=== PATIENT | female | born 1970 | race Caucasian/White ===

== ENCOUNTER → 2020-05-11 10:15 | Outpatient (CLI) | payer BC, SELFPAY ==
--- NOTE | ~2020-05-11 | MM_ITS ---
EXAMINATION: MM screening darius BI w xi HISTORY: Screening TECHNIQUE: Craniocaudal and mediolateral oblique 3-D tomosynthesis images were obtained and synthetic 2-D images were generated. CAD analysis was submitted and interpreted. COMPARISON: Comparison to multiple prior studies sequentially, with oldest reviewed study dated 05/17. BREAST PARENCHYMAL COMPOSITION: There are scattered areas of fibroglandular density. FINDINGS: There is developing asymmetry upper aspect of the right breast posteriorly on MLO view. The left breast is stable without evidence for malignancy. IMPRESSION: 1. Developing right breast asymmetry. 2. Additional mammographic views and possible breast ultrasound are recommended. BI-RADS Category 0: Incomplete: Needs additional imaging evaluation. Reviewed, dictated and finalized at location A. IMPRESSION: 1. Developing right breast asymmetry. 2. Additional mammographic views and possible breast ultrasound are recommended . BI-RADS Category 0: Incomplete: Needs additional imaging evaluation.
== END ==
PROVIDERS: Visit Provider Obstetrics & Gynecology
DX: Z12.31 Encounter for screening mammogram for malignant neoplasm of breast (principal); R92.8 Other abnormal and inconclusive findings on diagnostic imaging of breast
CPT/HCPCS: 77063; 77067

== ENCOUNTER → 2020-06-03 08:55 | Outpatient (CLI) | payer BC, SELFPAY ==
--- NOTE | ~2020-06-03 | MMUS_ITS ---
EXAMINATION: MM diagnostic mammo unilat RT, US breast RT limited HISTORY: Developing right breast mammographic asymmetry reported in posterior right breast on MLO scr eening view of 05/11/2020 TECHNIQUE: Additional 3-D tomosynthesis images of the right breast were performed and synthetic 2-D i mages were generated. CAD analysis was submitted and interpreted. High resolution upper outer and low er outer right breast ultrasound was performed. COMPARISON: 05/11/2020 bilateral digital screening mammogram FINDINGS: MAMMOGRAPHIC FINDINGS: No suspicious mass or architectural distortion or any malignant calcification, skin thickening or ret raction is detected. ULTRASOUND: 9:00 4 cm from nipple: There is a 3.9 x 2.9 x 4.6 mm hypoechoic lesion with some posterior shadowing. Ultrasound-guided biopsy is recommended. No other significant sonographic finding is noted. IMPRESSION: 1. Shadowing 4.6 mm right breast lesion at 9:00 4 cm from nipple 2. Ultrasound-guided biopsy of right 9:00 lesion is recommended BI-RADS category 4, suspicious findings. Dr. Nash telephoned the mammogram and ultrasound report and ultrasound guided biopsy recommendation o n 06/03/[address] Herzog's [facility]any[facility]. Reviewed, dictated and finalized at location A. IMPRESSION: 1. Shadowing 4.6 mm right breast lesion at 9:00 4 cm from nipple 2. Ultrasound-guided biopsy of right 9:00 lesion is recommended BI-RADS category 4, suspicious findings. Dr. Nash telephoned the mammogram and ultrasound report and ultrasound guided b iopsy recommendation on 06/03/[address] Herzog's [facility] ad[facility].
== END ==
PROVIDERS: Visit Provider Obstetrics & Gynecology
DX: N63.15 Unspecified lump in the right breast, overlapping quadrants (principal)
CPT/HCPCS: 76642; 77065

== ENCOUNTER 2020-06-22 09:53 | Outpatient (CLI) | payer BC, SELFPAY ==
--- NOTE | ~2020-06-22 | US_ITS ---
EXAMINATION: US GUIDED NEEDLE BIOPSY DATE: 06/22/2020 11:45 CDT INDICATION: Shadowing 4.6 mm right breast lesion at 9:00 4 cm from nipple TECHNIQUE AND FINDINGS: The risks and potential benefits of the procedure were discussed with the patient, and written inform ed consent was obtained. Timeout procedure was performed. After sterile preparation of the right steve st, 1% lidocaine was utilized for local anesthesia. A 14G spring-loaded biopsy gun needle was advanced to the edge of the region of interest at 9:00 4 cm from the nipple from a lateral approach utilizing sonographic guidance. A total of three tissue cor e samples were obtained through the lesion. An Inrad tissue marker clip was then placed at the biops y site. Hemostasis was achieved. A sterile bandage was applied. The patient tolerated procedure well and there was no evidence of immediate complication. The patien t was given verbal instructions prior to departing from the department. A two view mammogram was perf ormed to document tissue marker clip placement. The tissue samples were submitted to surgical patholo gy for histologic analysis. IMPRESSION: 1. Successful ultrasound guided biopsy of right 9:00 breast mass with biopsy marker placement. Dawn e refer to pathology report for histologic analysis. Reviewed, dictated and finalized at Location A. Reviewed, dictated and finalized at location A. IMPRESSION: 1. Successful ultrasound guided biopsy of right 9:00 breast mass with biopsy m arker placement. Please refer to pathology report for histologic analysis.
--- NOTE | ~2020-06-22 | MM_ITS ---
MM post biopsy invasive RT DATE: 06/22/2020 10:58 INDICATION: Post ultrasound-guided biopsy of 9:00 right breast mass TECHNIQUE: Digital ML and craniocaudal views following the right breast ultrasound-guided biopsy proc edure COMPARISON: None FINDINGS: A biopsy marker is present in the outer mid right breast IMPRESSION: Ultrasound-guided biopsy of outer mid right breast mass Reviewed, dictated and finalized at Location A. Reviewed, dictated and finalized at location A.
== END 2020-06-22 09:54 | disposition home or self-care (01) ==
PROVIDERS: Visit Provider Obstetrics & Gynecology
DX: N63.0 Unspecified lump in unspecified breast (principal); N60.31 Fibrosclerosis of right breast
CPT/HCPCS: 19083; 88305; A4648

== ENCOUNTER 2020-08-15 11:37 | Emergency (ER) | payer BC, SELFPAY ==
[2020-08-15 11:45] VITALS: BP 118/84; PULSE 78; RESP 12; TEMP 37.1; O2SAT 99
--- NOTE | 2020-08-15 11:45 | ED.SKABFB ---
HPI - Skin/Abscess/Foreign Bdy General Chief complaint: Skin/Abscess/Foreign Body Stated complaint: Rash Time Seen by Provider: 08/15/20 11:45 Source: patient Mode of arrival: ambulatory Limitations: no limitations History of Present Illness HPI narrative: Veronica Ribeiro is a 50 yo female with a PMH of GERD, hypothyroid, depression, [facility] generalized rash after cutting grass on . Appears to be some kind of contact dermatitis with poison sonny or poison sumac Related Data Home Medications Medication Instructions Recorded Confirmed levothyroxine 112 mcg tablet 112 mcg PO DAILY 05/08/20 08/15/20 paroxetine HCl 10 mg tablet 10 mg PO DAILY 05/08/20 08/15/20 Allergies Allergy/AdvReac Type Severity Reaction Status Date / Time No Known Allergies Allergy Verified 08/15/20 11:44 [facility] Past Medical History Medical History Elective x2 Surgical History Surgical History History of back surgery History of bilateral tubal ligation 2007 History of splenectomy 2000 [place] teeth extracted Family History Family History Father Lung cancer Mother Thyroid disorder Grandparent Carcinoma of colon Bone cancer grandfather Discharge Plan Discharge Prescriptions: No Action levothyroxine [Levoxyl] 112 mcg tablet 112 mcg PO DAILY RF: 0 paroxetine HCl 10 mg tablet 10 mg PO DAILY RF: 0 pantoprazole 20 mg tablet,delayed release (DR/EC) 20 mg PO QAM Qty: 90 RF: 3
--- NOTE | 2020-08-15 11:59 | ED.SKABFB ---
HPI - Skin/Abscess/Foreign Bdy General Chief complaint: Skin/Abscess/Foreign Body Stated complaint: Rash Time Seen by Provider: 08/15/20 11:45 Source: patient Mode of arrival: ambulatory Limitations: no limitations History of Present Illness HPI narrative: Veronica Ribeiro is a 50 yo female with a PMH of depression hypothyroid and GERD who [facility] complaints of poison sonny or poison sumac after cutting grass on . She wants a injection of prednisone and steroids to control the rash Related Data Home Medications Medication Instructions Recorded Confirmed levothyroxine 112 mcg tablet 112 mcg PO DAILY 05/08/20 08/15/20 paroxetine HCl 10 mg tablet 10 mg PO DAILY 05/08/20 08/15/20 Allergies Allergy/AdvReac Type Severity Reaction Status Date / Time No Known Allergies Allergy Verified 08/15/20 11:44 Review of Systems Review of Systems: Narrative: CONSTITUTIONAL: Denies fever, chills, sweats. EYES: Denies visual changes, redness, discharge. ENT: Denies rhinorrhea, congestion, sore throat, otalgia. CARDIOVASCULAR: Denies chest pain, palpitations, edema. RESPIRATORY: Denies dyspnea, wheezing, cough GASTROINTESTINAL: Denies abdominal pain, nausea, vomiting, diarrhea. GENITOURINARY: Denies dysuria, hematuria, abnormal discharge SKIN: Mild contact dermatitis rash NEUROLOGIC: Denies numbness, or focal weakness. PSYCHIATRIC: Denies anxiety or depression. [facility] Past Medical History Medical History Elective x2 Surgical History Surgical History History of back surgery History of bilateral tubal ligation 2007 History of splenectomy 2000 [place] teeth extracted Family History Family History Father Lung cancer Mother Thyroid disorder Grandparent Carcinoma of colon Bone cancer grandfather Social History Social History (Updated 08/15/20 @ 12:04 by Eloisa De La O CNP) Smoking packs per day: 1 Smoking cigarettes per day: 20.0 Smoking status: Current every day smoker Tobacco type: cigarettes Alcohol intake: current Occupation/Education: occupation Comments At time of signature, I agree with nursing past medical, surgical, social and family history. There is no relevant family history pertinent to the presenting complaint. Exam Narrative: Exam Narrative: GENERAL: This is a well-nourished, well-developed patient, in mild distress. HEAD: normocephalic, atraumatic. EYES: Sclera clear/white. Vision is grossly intact. EARS: External ears normal,. Hearing grossly intact. NOSE: External nose normal without nasal discharge, nares without redness, no rhinorrhea. THROAT: Mucous membranes moist, NECK: Neck supple, CARDIOVASCULAR: Regular rate and rhythm without murmurs, gallops, or rubs. RESPIRATORY: Clear to auscultation. Breath sounds equal bilaterally. No wheezes, rales, or rhonchi. GASTROINTESTINAL: Abdomen soft, SKIN: warm, intact with mild erythematous papular rash on right and left forearm few spots on abdomen and left side top of thighs right greater than left. NEURO: awake, alert, and oriented to person, place and time. There were no obvious focal neurologic abnormalities. Steady gait EXTREMITIES: Normal range of motion. BACK: Nontender without deformity Course Course Emergency Course: Patient comes to [facility] with complaints of rash from cutting grass and believes was exposed to the poison sonny or poison sumac Given the prednisone 80 mg IM here started on Medrol Dosepak plus Pepcid plus Benadryl Vital Signs Vital signs: Vital Signs Temperature 98.8 F 08/15/20 11:45 Pulse Rate 78 08/15/20 11:45 Respiratory Rate 12 08/15/20 11:45 Blood Pressure 118/84 08/15/20 11:45 Pulse Oximetry 99 08/15/20 11:45 Temperature 98.8 F 08/15/20 11:45 Pulse Rate 78 08/15/20
[2020-08-15] MEDS: methylPREDNISolone ACETATE 80 MG/ML VIAL IM (12:10)
== END 2020-08-15 12:30 | disposition home or self-care (01) ==
PROVIDERS: Emergency Provider Nurse Practitioner
DX: L23.7 Allergic contact dermatitis due to plants, except food (principal); F17.210 Nicotine dependence, cigarettes, uncomplicated; E03.9 Hypothyroidism, unspecified; F32.9 Major depressive disorder, single episode, unspecified
CPT/HCPCS: 96372; 99213; G0463; J1040

== ENCOUNTER 2021-10-29 00:35 | Day surgery (SDC) | payer BC, SELFPAY ==
[2021-10-25 12:33] VITALS: BMI 31.8
[2021-10-29 09:57] VITALS: BP 118/80; PULSE 75; RESP 18; TEMP 36.2; O2SAT 100; BMI 30.9
[2021-10-29] MEDS: LACTATED RINGERS 1,000 ML 150 ML IV CONT (10:06)
--- NOTE | 2021-10-29 10:17 | P.HP_ITS ---
History of Present Illness History of Present Illness Consent: Risks, benefits, and alternatives have been discussed and questions answered. Patient agrees to proceed with procedure. Chief complaint: Barretts' esophagus Narrative: Veronica Ribeiro is a 51 year old female who 2 years ago was found to have a small segment of Barretts esophagus on endoscopy at another institution. She has been taking pantoprazole 20 mg Daily Review of Systems Review of Systems: All systems reviewed & are unremarkable except as noted in HPI and below PMFSH Past Medical History Medical History Elective x2 Surgical History Surgical History History of back surgery History of bilateral tubal ligation 2007 History of splenectomy [address] [place] teeth extracted Family History Family History Father Lung cancer Mother Thyroid disorder Grandparent Carcinoma of colon Bone cancer grandfather Social History Social History Smoking packs per day: 1 Smoking cigarettes per day: 20.0 Smoking status: Current every day smoker Tobacco type: cigarettes and e-cigarettes/vaping Alcohol intake: current Alcohol use details: occasional use Substance use: never Substance use type: does not use Living arrangements: alone Spiritual care concerns: No Meds Home Medications and Allergies Home Medications Medication Instructions Recorded Confirmed Type levothyroxine 112 mcg tablet 112 mcg PO DAILY 05/08/20 10/25/21 History (Levoxyl) pantoprazole 20 mg tablet,delayed 20 mg PO QAM #90 tabs 05/15/20 10/25/21 Rx release bupropion HCl (smoking deter) 150 150 mg PO DAILY 10/25/21 10/25/21 History mg tablet,12 hr sustained-release(smoking deterrent) Allergies Allergy/AdvReac Type Severity Reaction Status Date / Time No Known Allergies Allergy Verified 10/29/21 09:56 Vital Signs Vital Signs - 24 hr 10/29/21 09:57 Temperature 36.2 C L Pulse Rate 75 Respiratory Rate 18 Blood Pressure 118/80 Pulse Oximetry 100 Oxygen Delivery Room Air Exam Const: General: alert Orientation/consciousness: patient oriented x3 Resp: Auscultation: clear to auscultation bilaterally Cardio: Rhythm: regular rhythm GI: GI Palp: Yes Soft to palpation and No Tenderness to palpation present (GI) Neuro: General: patient oriented x3 Assessment and Plan Assessment and plan (1) Sunshine's esophagus: Code(s): K22.70 - Sunshine's esophagus without dysplasia Status: Acute Assessment and Plan: EGD with possible biopsy or dilatation or cautery.
--- NOTE | 2021-10-29 10:43 | WPDANESEPPF ---
Anes - Initial Pre Proc Eval Procedure: Operation Date: 10/29/21 10:45 Proposed Procedures p Esophagogastroduodenoscopy EGD - Mao Miguel MD Date/Time: 10/29/21 10:43 Surgeon: Mao Miguel MD Pre Op Diagnosis: Barretts' esophagus Patient Data Age: 51 Gender: F Height: 1.63 m Weight: 81.8 kg Last Vital Signs Temp 97.2 F L 10/29/21 09:57 Pulse 75 10/29/21 09:57 Resp 18 10/29/21 09:57 BP 118/80 10/29/21 09:57 Pulse Ox 100 10/29/21 09:57 O2 Del Method Room Air 10/29/21 09:57 Allergies Allergy/AdvReac Type Severity Reaction Status Date / Time No Known Allergies Allergy Verified 10/29/21 09:56 Home Medications Medication Instructions Recorded Confirmed Type levothyroxine 112 mcg tablet 112 mcg PO DAILY 05/08/20 10/25/21 History (Levoxyl) pantoprazole 20 mg tablet,delayed 20 mg PO QAM #90 tabs 05/15/20 10/25/21 Rx release bupropion HCl (smoking deter) 150 150 mg PO DAILY 10/25/21 10/25/21 History mg tablet,12 hr sustained-release(smoking deterrent) Patient hx anesthesia problems: none Family hx anesthesia problems: none Results Review: All pre-operative results and documents have been reviewed as part of the pre-operative evaluation. PMFSH Past Medical History Medical History Elective x2 Surgical History Surgical History History of back surgery History of bilateral tubal ligation 2007 History of splenectomy 2000 [place] teeth extracted Family History Family History Father Lung cancer Mother Thyroid disorder Grandparent Carcinoma of colon Bone cancer grandfather Social History Social History Smoking packs per day: 1 Smoking cigarettes per day: 20.0 Smoking status: Current every day smoker Tobacco type: cigarettes and e-cigarettes/vaping Alcohol intake: current Alcohol use details: occasional use Substance use: never Substance use type: does not use Living arrangements: alone Spiritual care concerns: No Anes - Eval Final PreProcedure Day of Procedure 10/29/21 10:43 Patient weight: obese Heart: regular rate and rhythm Lungs: clear to auscultation Airway: Mallampati scale class II Neurological: alert and oriented Last oral intake: >/= 8 hours ASA classification: II Emergent: no Anesthetic plan: proceed Anesthesia type and monitoring: general GIVS and standard monitoring Results Review: All pre-operative results and documents have been reviewed as part of the pre-operative evaluation. Informed Consent: The patient's anesthetic plan and its attendant risks and benefits were discussed with the patient/family/POA. Questions were solicited and answers provided to the satisfaction of the patient/family/POA.
[2021-10-29 11:04] VITALS: BP 90/55; PULSE 78; RESP 18; O2SAT 97
[2021-10-29 11:14] VITALS: BP 96/64; PULSE 75; RESP 22; O2SAT 99
[2021-10-29 11:24] VITALS: BP 108/74; PULSE 72; RESP 18; O2SAT 99
== END 2021-10-29 11:32 | disposition home or self-care (01) ==
PROVIDERS: Visit Provider Internal Medicine Gastroenterology
PROC: 0DJ08ZZ Inspection of Upper Intestinal Tract, Via Natural or Artificial Opening Endoscopic (ICD-10-PCS; CPT 43235; principal; 2021-10-29 10:45)
DX: Z09 Encounter for follow-up examination after completed treatment for conditions other than malignant neoplasm (principal); K22.70 Barrett's esophagus without dysplasia; K21.00 Gastro-esophageal reflux disease with esophagitis, without bleeding; F17.210 Nicotine dependence, cigarettes, uncomplicated; E03.9 Hypothyroidism, unspecified
CPT/HCPCS: 43239; 88305; J2704; J7120

== ENCOUNTER 2024-09-26 00:15 | Day surgery (SDC) | payer BC, SELFPAY ==
[2024-09-13 08:45] VITALS: BMI 34.4
--- OUTSIDE RECORDS SUMMARY | 2024-09-26 00:18 | XMS_ITS | Referral Summary ---
Author Organization [facility] Address [facility] [place] [address] Care Team Providers [employer] Social Worker Name Role Phone Evelyn Hansen Primary Care Provider + Allergies Active Allergy Reactions Criticality Noted Date Comments Bupropion Other (See comments) Low 08/26/2022 Feels like it is making her crazy. Omeprazole Stomach upset Low 01/03/2020 But able to tolerate pantoprazole Medications pantoprazole DR (PROTONIX) 40 mg EC tablet Take 1 tablet (40 mg total) by mouth cvicu rn before breakfast 0 Active sertraline (ZOLOFT) 50 mg tablet Take 1 tablet (50 mg total) by mouth every morning 3 Active Synthroid 100 mcg tablet Take 1 tablet (100 mcg total) by mouth cvicu rn before breakfast 4 Active calcium carbonate (Calcium 600) 1,500 mg (600 mg elemental) tablet Take 1 tablet (1,500 mg total) by mouth daily 30 tablet 3 4 Active ergocalciferol (VITAMIN D) 50,000 unit capsule Take 1 capsule (50,000 Units total) by mouth once a week TAKE 1 CAPSULE ONCE A WEEK FOR 12 WEEKS, THEN FOLLOW UP WITH YOUR PCP. 12 capsule 4 Active traMADoL (ULTRAM) 50 mg tablet Take 1 tablet (50 mg total) by mouth every 6 (six) hours as needed for pain for up to 42 doses 42 tablet 4 Active oxyCODONE (ROXICODONE) 5 mg immediate release tabletIndicatio ns:Pain Take 1 tablet (5 mg total) by mouth every 4 (four) hours as needed for pain for up to 30 doses 30 tablet 4 Active pregabalin (LYRICA) 75 mg capsule Take 1 capsule (75 mg total) by mouth 2 (two) times a day for 14 days 28 capsule 4 Active acetaminophen (TYLENOL) 500 mg tablet Take 2 tablets (1,000 mg total) by mouth every 8 (eight) hours 90 tablet 4 Active aspirin 81 mg enteric coated tablet Take 1 tablet (81 mg total) by mouth 2 (two) times a day 60 tablet 4 Active meloxicam (MOBIC) 7.5 mg tablet Take 1 tablet (7.5 mg total) by mouth daily 30 tablet 4 Active senna-docusate (PERICOLACE) 8.6-50 mg Take 2 tablets by mouth 2 (two) times a day May increase to 4 tablets twice daily if needed. HOLD medication for diarrhea. 80 tablet 1 4 Active amoxicillin 500 mg tablet/capsuleI ndications:Prop hylaxis, Medical TAKE 4 PILLS 1 HOUR BEFORE DENTAL APPOINTMENT. 12 tablet/capsul e 5 Active Active Problems Problem Noted Date Diagnosed Date Right hip pain 10/31/2023 Primary osteoarthritis of right hip 09/14/2023 Bilateral knee pain 10/04/2022 Overview (09/14/2023): Last Assessment & Plan: Bilateral knee pain Mild osteoarthritis, bilateral knee Osteoarthritis, right hip. History of low back pain. We discussed the risks, benefits, and alternatives today. We will consider an x- ray in the future for the right hip osteoarthritis, as well as an MRI for the low back pain. At this time, she will begin formal physical therapy as well as begin Celebrex for inflammation. She will return to the clinic in 6 weeks if there is no improvement in her symptoms. Bilateral primary osteoarthritis of knee 023 Primary osteoarthritis of right knee 10/04/2022 Dermatitis 10/04/2020 Assessment & Plan (10/04/2020 10:05 AM CDT): Prednisone sent to pharmacy. Went over AVS with patient. Educated on warning signs and when to seek emergency care. 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 2-3 times a week 10/31/2023 Q2: How many drinks containi ng alcohol do you have on a typical day when you are drinking? 1 or 2 10/31/2023 Q3: How often do you have si x or more drinks on one occasion? Never 10/31/2023 Personal Safety Answer Date Recorded Have you ever been in or are you currently in a harmful physical or emotional relationship or is someone making you feel afraid or unsafe? Denies 10/31/2023 Comments Unknown Sex and Gender Information Value Date Recorded Sex Assigned at Not on file Legal Sex Female 2:40 AM [employer] Gender Identity Not on file Sexual Orientation Not on file Last Filed Vital Signs Vital Sign Reading Time Taken Comments Blood Pressure 99/65 10/31/2023 1:25 PM CDT Pulse 76 10/31/2023 3:30 PM CDT Temperature 36.6 C (97.9 F) 10/31/2023 12:00 PM CDT Respiratory Rate 18 10/31/2023 3:00 PM CDT Oxygen Saturation 92% 10/31/2023 4:00 PM CDT Inhaled Oxygen Concentration - - Weight 89.8 kg (198 lb) 10/31/2023 7:23 AM CDT Height 162.6 cm (5' 4) 10/31/2023 7:23 AM CDT Body Mass Index 33.99 10/31/2023 7:23 AM CDT Plan of Treatment Not on file Medical Devices Implanted Type Area Clinical Applications Manager Device Identifier Shelf Expiration Date Model / Serial / Lot [employer] Shell Acetabular Hip Porous Cluster Hole Coated Empowr 50mm Titanium Size 50e 940-02-50e - [id number] Implanted:Qty: 1 on 10/31/[address] [facility] Right: Hip [employer] 09/17/2029 940-02-50E / / [id number] [employer] Screw Empowr Acetabular Bone 35mm 940-00-035 - [id number] Implanted:Qty: 1 on 10/31/[address] [facility] Right: Hip [employer] 03/10/2028 940-00-035 / / [id number] [employer] Liner Empowr Acetabular System Neutral Hxe 36e 941-01-36e - [id number] Implanted:Qty: 1 on 10/31/[address] [facility] Right: Hip [employer] 09/19/2028 941-01-36E / / [id number] [employer] Stem Femoral Hip Porous Collared Titanium Standard Offset Size 11 [id number] - [id number] Implanted:Qty: 1 on 10/31/[address] [facility] Right: Hip [employer] 02/28/2028 [id number] / / [id number] [employer] Head Femoral Biolox Delta -4 Od36 Mm Hip Fmp System [id number] - [id number] Implanted:Qty: 1 on 10/31/[address] [facility] Right: Hip [employer] 07/04/2028 [id number] / / [id number] Insurance BLUE ACC CHOICE OOS [employer] OOS BLUE ACC CHOICE OOS [employer] Social Worker Relationship Specialty Start Date End Date Evelyn Hansen PA [address] [place] [address] PCP - General Physician Datawarehouse Developer 03/30/20
--- OUTSIDE RECORDS SUMMARY | 2024-09-26 00:18 | XMS_ITS | Clinical Summary ---
Author Organization [facility] Address [facility] [place] [address] Care Team Providers Care Thread Cutter Tender Name Role Phone Evelyn Hansen Primary Care Provider + Allergies Active Allergy Reactions Criticality Noted Date Comments Bupropion Other (See comments) Low 08/26/2022 Feels like it is making her crazy. 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 0 Active sertraline (ZOLOFT) 50 mg tablet Take 1 tablet (50 mg total) by mouth every morning 3 Active Synthroid 100 mcg tablet Take 1 tablet (100 mcg total) by mouth dramatic arts historian before breakfast 4 Active calcium carbonate (Calcium [...] (04/17/2020): Added automatically from request for surgery [id number] Sunshine's esophagus 11/26/2019 Colon polyps 11/26/2019 Gastroduodenitis 11/26/2019 Hiatal hernia 11/26/2019 Internal hemorrhoid 11/26/2019 Impaired fasting glucose 07/06/2017 Hyperlipidemia 10/07/2016 Hypothyroidism 04/16/2014 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 Overview (09/14/2023): H/o splenectomy Immunizations Immunization Administration Dates Next Due Influenza, Unspecified 11/28/2022,12/22/2021 ZOSTER Recombinant 06/12/2023,01/27/2023 Surgical History Surgery Date Site/Laterality Comments SPINE SURGERY lumbar SHOULDER ARTHROSCOPY TUBAL LIGATION SPLENECTOMY Medical History Medical History Date Comments Obesity GERD (gastroesophageal reflux disease) Family History Medical History Relation Name Comments Cancer Father Anesthesia problems Neg Hx Relation Name Status Comments Father Social History Tobacco Use Types Packs/Day Years Used Date Smoking Tobacco: Former Cigarettes Q uit: 2020 Smokeless Tobacco: Never Tobacco Cessation:Counseling Given: Not [...] on file 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 Gender Identity Not on file Sexual Orientation Not on file Obstetrics History Comments LMP: age ~38 y/o Last Filed Vital Signs Vital Sign Reading [...] 10/31/2023 7:23 AM CDT Plan of Treatment Health Maintenance Due Date Last Done Comments Cervical Cancer Screening 1968 Colon Cancer Screening-Colonoscopy 1968 Depression Screening 1968 Hepatitis C Screening 1968 DTaP/Tdap/Td Vaccine (1 - Tdap) 08/13/1979 Hepatitis B Screening 1986 Regular Well Visit/Exam 18-64 1986 Breast Cancer Screening-Mammogram 07/09/2022 07/09/2021, 07/09/2021 Influenza Vaccine (#1) 2024 , 11/28/2022, 12/22/2021 Zoster Vaccine Completed 06/12/2023, 01/27/2023 Pneumococcal vaccine <65 Aged Out No longer eligible based on patient's age to complete this topic Medical Devices Implanted Type Area Career Counselor Device Identifier Shelf Expiration Date Model / Serial / Lot [employer] Shell Acetabular Hip Porous Cluster Hole Coated Empowr 50mm Titanium Size 50e 940-02-50e - [id number] Implanted:Qty: 1 on 10/31/[address] [facility] Right: Hip [employer] 09/17/2029 940-02-50E / / [id number] [employer] Screw Empowr Acetabular Bone 35mm 940-00-035 - [id number] Implanted:Qty: 1 on 10/31/[address] [facility] Right: Hip [employer] 03/10/2028 940-00-035 / / [id number] [employer] Liner Empowr Acetabular System Neutral Hxe 36e 941-01-36e - [id number] Implanted:Qty: 1 on 10/31/[address] [facility] Right: Hip [employer] 09/19/2028 941-01-36E / / [id number] [employer] Stem Femoral Hip Porous Collared Titanium Standard Offset Size 11 [id number] - [id number] Implanted:Qty: 1 on 10/31/[address] [facility] Right: Hip [employer] 02/28/2028 V370-83-37 02 / / [id number] [employer] Head Femoral Biolox Delta -4 Od36 Mm Hip Fmp System [id number] - [id number] Implanted:Qty: 1 on 10/31/[address] [facility] Right: Hip [employer] 07/04/2028 [id number] / / [id number] Insurance [employer] OOS [employer] OOS [facility] CHOICE OOS Care Teams Thread Cutter Tender Relationship Specialty Start Date End Date Evelyn Hansen PA [address] [place] [address] PCP - General Physician Automatic Glove Former 03/30/20
[2024-09-26 06:48] VITALS: BP 130/96; PULSE 97; RESP 18; TEMP 36.2; O2SAT 98
[2024-09-26] MEDS: LACTATED RINGERS 1,000 ML 150 ML IV CONT (06:57)
--- NOTE | 2024-09-26 07:29 | WPDANESEPPF ---
Anes - Initial Pre Proc Eval Procedure: Operation Date: 09/26/24 08:00 Proposed Procedures p Esophagogastroduodenoscopy & Colonoscopy - Darell Mclaughlin MD s [facility] Hemorrhoid Treatment - Darell Mclaughlin MD Date/Time: 09/26/24 07:29 Surgeon: Darell Mclaughlin MD Pre Op Diagnosis: Unspecified hemorrhoids Patient Data Age: 54 Gender: F Height: 1.63 m Weight: 87.5 kg Last Vital Signs Temp 36.2 C L 09/26/24 06:48 Pulse 97 09/26/24 06:48 Resp 18 09/26/24 06:48 BP 130/96 H 09/26/24 06:48 Pulse Ox 98 09/26/24 06:48 O2 Del Method Room Air 09/26/24 06:48 Allergies Allergy/AdvReac Type Severity Reaction Status Date / Time No Known Allergies Allergy Verified 09/26/24 06:47 Home Medications ?Medication ?Instructions ?Recorded ?Confirmed ?Type levothyroxine 112 mcg tablet 112 mcg PO DAILY 05/08/20 09/26/24 History (Levoxyl) bupropion HCl (smoking deter) 150 150 mg PO DAILY 10/25/21 09/13/24 History mg tablet,12 hr sustained-release(smoking deterrent) acetaminophen 500 mg tablet 1,000 mg PO .COMPLEX PRN pain 09/13/24 09/13/24 History sertraline 50 mg tablet 50 mg PO Q24H 09/13/24 09/13/24 History pantoprazole 40 mg tablet,delayed See Rx Instructions .Route 09/23/24 Rx release .COMPLEX #90 tabs Patient hx anesthesia problems: none Family hx anesthesia problems: none Results Review: All pre-operative results and documents have been reviewed as part of the pre-operative evaluation. [facility] Past Medical History Medical History Elective x2 Surgical History Surgical History [place] teeth extracted History of back surgery History of bilateral tubal ligation 2006 History of splenectomy 1999 Family History Family History Father Lung cancer Mother Thyroid disorder Grandparent Carcinoma of colon Bone cancer grandfather Social History Social History Smoking packs per day: 1 Smoking cigarettes per day: 20.0 Smoking status: Current every day smoker Tobacco type: e-cigarettes/vaping Alcohol intake: current Drinks per week: 5 Alcohol use details: occasional use Substance use: never Substance use type: does not use Living arrangements: alone Occupation/Education: occupation Spiritual care concerns: No Anes - Eval Final PreProcedure Day of Procedure 09/26/24 07:29 Patient weight: normal Heart: regular rate and rhythm Lungs: clear to auscultation Airway: Mallampati scale class II Neurological: alert and oriented Last oral intake: >/= 8 hours ASA classification: III Emergent: no Anesthetic plan: proceed Anesthesia type and monitoring: general GIVS and standard monitoring Results Review: All pre-operative results and documents have been reviewed as part of the pre-operative evaluation. Informed Consent: The patient's anesthetic plan and its attendant risks and benefits were discussed with the patient/family/POA. Questions were solicited and answers provided to the satisfaction of the patient/family/POA.
--- NOTE | 2024-09-26 07:31 | WPDANESEPPF ---
Anes - Initial Pre Proc Eval Procedure: Operation Date: 09/26/24 08:00 Proposed Procedures p Esophagogastroduodenoscopy & Colonoscopy - Darell Mclaughlin MD s [facility] Hemorrhoid Treatment - Darell Mclaughlin MD Date/Time: 09/26/24 07:31 Surgeon: Darell Mclaughlin MD Pre Op Diagnosis: Unspecified hemorrhoids Patient Data Age: 54 Gender: F Height: 1.63 m Weight: 87.5 kg Last Vital Signs Temp 36.2 C L 09/26/24 06:48 Pulse 97 09/26/24 06:48 Resp 18 09/26/24 06:48 BP 130/96 H 09/26/24 06:48 Pulse Ox 98 09/26/24 06:48 O2 Del Method Room Air 09/26/24 06:48 Allergies Allergy/AdvReac Type Severity Reaction Status Date / Time No Known Allergies Allergy Verified 09/26/24 06:47 Home Medications ?Medication ?Instructions ?Recorded ?Confirmed ?Type levothyroxine 112 mcg tablet 112 mcg PO DAILY 05/08/20 09/26/24 History (Levoxyl) bupropion HCl (smoking deter) 150 150 mg PO DAILY 10/25/21 09/13/24 History mg tablet,12 hr sustained-release(smoking deterrent) acetaminophen 500 mg tablet 1,000 mg PO .COMPLEX PRN pain 09/13/24 09/13/24 History sertraline 50 mg tablet 50 mg PO Q24H 09/13/24 09/13/24 History pantoprazole 40 mg tablet,delayed See Rx Instructions .Route 09/23/24 Rx release .COMPLEX #90 tabs Patient hx anesthesia problems: none Family hx anesthesia problems: none Results Review: All pre-operative results and documents have been reviewed as part of the pre-operative evaluation. [facility] Past Medical History Medical History Elective x2 Surgical History Surgical History [place] teeth extracted History of back surgery History of bilateral tubal ligation 2006 History of splenectomy 1999 Family History Family History Father Lung cancer Mother Thyroid disorder Grandparent Carcinoma of colon Bone cancer grandfather Social History Social History Smoking packs per day: 1 Smoking cigarettes per day: 20.0 Smoking status: Current every day smoker Tobacco type: e-cigarettes/vaping Alcohol intake: current Drinks per week: 5 Alcohol use details: occasional use Substance use: never Substance use type: does not use Living arrangements: alone Occupation/Education: occupation Spiritual care concerns: No Anes - Eval Final PreProcedure Day of Procedure 09/26/24 07:31 Patient weight: obese Heart: regular rate and rhythm Lungs: decreased breath sounds Airway: Mallampati scale class II Neurological: alert and oriented Last oral intake: >/= 8 hours ASA classification: III Emergent: no Anesthetic plan: proceed Anesthesia type and monitoring: general GIVS and standard monitoring Results Review: All pre-operative results and documents have been reviewed as part of the pre-operative evaluation. Informed Consent: The patient's anesthetic plan and its attendant risks and benefits were discussed with the patient/family/POA. Questions were solicited and answers provided to the satisfaction of the patient/family/POA.
--- NOTE | 2024-09-26 07:55 | P.HP_ITS ---
History of Present Illness History of Present Illness Consent: Risks, benefits, and alternatives have been discussed and questions answered. Patient agrees to proceed with procedure. Chief complaint: Unspecified hemorrhoids Narrative: Veronica Ribeiro is a 54 year old female with gerd, last egd 2021, also hemorrhoids with last colonoscopy 5 years ago Review of Systems Review of Systems: All systems reviewed & are unremarkable except as noted in HPI and below PMFSH Past Medical History Medical History Elective x2 Surgical History Surgical History [place] teeth extracted History of back surgery History of bilateral tubal ligation 2006 History of splenectomy 1999 Family History Family History Father Lung cancer Mother Thyroid disorder Grandparent Carcinoma of colon Bone cancer grandfather Social History Social History Smoking packs per day: 1 Smoking cigarettes per day: 20.0 Smoking status: Current every day smoker Tobacco type: e-cigarettes/vaping Alcohol intake: current Drinks per week: 5 Alcohol use details: occasional use Substance use: never Substance use type: does not use Living arrangements: alone Occupation/Education: occupation Spiritual care concerns: No Meds Home Medications and Allergies Home Medications ?Medication ?Instructions ?Recorded ?Confirmed ?Type levothyroxine 112 mcg tablet 112 mcg PO DAILY 05/08/20 09/26/24 History (Levoxyl) bupropion HCl (smoking deter) 150 150 mg PO DAILY 10/25/21 09/13/24 History mg tablet,12 hr sustained-release(smoking deterrent) acetaminophen 500 mg tablet 1,000 mg PO .COMPLEX PRN pain 09/13/24 09/13/24 History sertraline 50 mg tablet 50 mg PO Q24H 09/13/24 09/13/24 History pantoprazole 40 mg tablet,delayed See Rx Instructions .Route 09/23/24 Rx release .COMPLEX #90 tabs Allergies Allergy/AdvReac Type Severity Reaction Status Date / Time No Known Allergies Allergy Verified 09/26/24 06:47 Vital Signs Vital Signs - 24 hr 09/26/24 06:48 Temperature 97.1 F L Pulse Rate 97 Respiratory Rate 18 Blood Pressure 130/96 H Pulse Oximetry 98 Oxygen Delivery Room Air Exam Const: General: comfortable and no acute distress HENMT: Face/Nose/Sinus: Normal nares present Eyes: General: appearance normal, both eyes and all related structures Neck: Neck: no JVD Resp: Auscultation: clear to auscultation bilaterally Cardio: Rate: regular rate Rhythm: regular rhythm GI: Inspection: non-distended GI Palp: Yes Soft to palpation Skin: General skin exam: normal color Neuro: Speech: normal speech Extrem: General: normal to inspection Psych: Mental Status: mental status grossly normal Assessment and Plan Assessment and plan (1) GERD with esophagitis: Code(s): K21.00 - Gastro-esophageal reflux disease with esophagitis, without bleeding Status: Acute Assessment and Plan: egd with bx (2) Hx of colonic polyps: Code(s): Z86.010 - Personal history of colon polyps Status: Acute Assessment and Plan: colonoscopy (3) Hemorrhoids: Code(s): K64.9 - Unspecified hemorrhoids Status: Acute Assessment and Plan: if find internal hemorrhoid then will do IRC
--- NOTE | 2024-09-26 08:05 | SUR.OPER ---
EGD [id number]. Colonoscopy start time 806.
--- NOTE | 2024-09-26 08:17 | S_PTH ---
PATIENT: Veronica Ribeiro LOC: [facility] Aly#:[id number] AGE/SX: 54/F ROOM: RE09/26/[address]: Darell Mclaughlin MD : 1970 BED: DIS: 09/26/2024 SPEC #: [id number] RECD: 09/26/24 11:02 STATUS: FRANNY JOSEPH #: [id number] CAITLIN: 09/26/24 08:[address]: Darell Mclaughlin DEPT: [facility] Surgical RECD BY: Angela Enriquez ENTERED: 09/26/24 11:03 SP TYPE: Surgical OTHR DR: Evelyn Hansen, PA Tissues: A - Gastric Biopsy B - Esophageal Biopsy C - Colon Polypectomy Procedures: Hematoxylin and Eosin Stain Gross and Microscopic Level 4
--- NOTE | 2024-09-26 08:21 | W.PM.PROC2 ---
Procedure Note - Detailed Date of Procedure 09/26/24 Pre-op Diagnosis Unspecified hemorrhoids Post-op Diagnosis Same Procedure Performed IRC on internal hemorrhoids Surgeon Darell Mclaughlin MD Anesthesia MAC (also had colonoscopy) Findings noted grade II internal hemorrhoids Description of Procedure used anoscopy and noted grade II internal hemorrhoids, no bleeding, no fissure then IRC probe was advanced and hemorrhoids treated at 1.4 seconds x7
[2024-09-26 08:23] VITALS: BP 105/71; PULSE 80; RESP 18; O2SAT 98
[2024-09-26 08:33] VITALS: BP 116/81; PULSE 71; RESP 17; O2SAT 98
[2024-09-26 08:43] VITALS: BP 119/82; PULSE 69; RESP 20; O2SAT 98
== END 2024-09-26 08:57 | disposition home or self-care (01) ==
PROVIDERS: PCP Physician Assistant; Referring Provider Nurse Practitioner; Visit Provider Internal Medicine Gastroenterology
PROC: 0DJ08ZZ Inspection of Upper Intestinal Tract, Via Natural or Artificial Opening Endoscopic (ICD-10-PCS; CPT 45378; principal; 2024-09-26 08:00)
PROC: (CPT 46930; 2024-09-26 08:00)
DX: Z12.11 Encounter for screening for malignant neoplasm of colon (principal); K62.1 Rectal polyp; K64.8 Other hemorrhoids; K21.00 Gastro-esophageal reflux disease with esophagitis, without bleeding; F17.290 Nicotine dependence, other tobacco product, uncomplicated; E66.9 Obesity, unspecified; Z68.33 Body mass index [BMI] 33.0-33.9, adult
CPT/HCPCS: 45385; 43239; 46930; 88305; J2003; J2704; J7120